=== PATIENT | female | born 1990 | race Caucasian/White ===

== ENCOUNTER 2023-08-17 13:00 | Outpatient (RCR) | payer OTHER, SELFPAY ==
--- NOTE | 2023-07-08 06:53 | HP.OTEVAL_ITS ---
Patient's Visit Information Visit Information Visit Information: NIGHAT BLANCO is a 33 year old F, referred to Occupational Therapy by Dr. Jah Wilson DO, with a diagnosis of R/L tenosynovitis, pain Right wrist. Date of Evaluation: 07/06/23 Occupational Therapist: KARELY Noyola/Zelda, CHT Subjective Subjective: This 33 year old female was seen for OT eval with dx of bilateral Tenosynovitis. pt states she notices pain in July 2022. Pt states things did improve but has had a fair up last few months. pt states pain will come from wrist into her pinky and also thumb will get random with numbness or tingling that has no pattern - pt states she notices increase more discomfort with her 10 hour work days pt states she varies with her work station in her home from desk to table to couch ADLs Comments: pt state she does workout with weights so she will use wrist wraps while she is lifting to get better hold- pt state when she gets her nails done she will get numbness in bilateral hands sleeping when wrist are curled will get numbness pt states she lift weight for strength training Pain right hand: Current Pain Intensity: 3 Pain Intensity Range: 0 and 3 left hand: Current Pain Intensity: 3 Pain Intensity Range: 0 and 3 ROM Elbow: right +10/140 left +10/140 Forearm: right/left WNL Wrist: right 65/65 left 65/65 ROM Comments: pt demo with slight Hyper ext at elbow all ROM is WNL Strength Supervisor Advice: right 70# left 65# Lateral Pinch: right 18# left 16# Tripod Pinch: right 12# left 12# Strength Comments: pt denies pain with testing Sensation Sensation Comments: pt states numbness comes and goes throughout Median and ulnar nerve distribution Special Tests Elbow Flexion Test - Cubital Tunnel: positive faster on right than left Quick DASH-Disab of Arm,Shoulder& Hand Quick DASH Score: 26.7850 Goals Goal:: 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 pt will demo understanding of work station ergo by end of 1st session to decrease stress on prolonged wrist flex/ext or elbow flexion positions to decrease stress on nerves. Goal:: Pt will demo understanding of using supportive bracing 80% of workday/ADLS to decrease stress on tendon origin to allow healing and decrease pain by end of 2nd session. Goal:: pt will demo understanding of keeping wrist in N alignment with lifting program to avoid aggressive tension on tendons & nerves by d/c. pt will demo understanding of avoiding elbow hyper ext- with lifting to decrease tension on ulnar nerve by d/c Rehabilitation General Assessment: pt demo with painful bilateral UE with increase use of typing as well as tingling/numbness throughout median and ulnar nerve distribution.pt demo with positive symptoms of nerve involvement with positional irritation. This limits pt IND with her daily work tasks as well as her IADLs. pt would benefit from skilled OT services 1-2x week for 4 weeks to ed. pt on nerve glides, protective irene. to avoid wrist and joint strain- as well as bracing to decrease tenosynovitis symptoms. Pt demo understanding and agrees to POC. Rehabilitation Potential: Good Anticipated Interventions Anticipated Interventions: A/AAROM/PROM, Triggerpoint Release, Modalities, Orthoses, Joint Protection/Energy Conservation, Ergonomic Education, Education re assistive Equipment, Education re Diagnosis and Home Program Other Interventions: work ergonomics lifting ergonomics Median and ulnar nerve glides Visit Plan Frequency: 1-2x /Week Duration: 4-6 Weeks TEXT: Thank you for the opportunity to evaluate your patient. For Medicare and Medicare HMO plans, please review the plan of care and approve it. It will need to be FAXED BACK to us at [phone] for Medicare purposes. Please let me know if there are questions or concerns regarding this plan of care. Physician Signature: Date:
--- NOTE | 2023-12-16 09:01 | HP.OT.NRP ---
Patient Information Patient Information: NIGHAT BLANCO was seen in my office for initial evaluation on 07/06/23. The following Plan of Care was established for this patient: POC Established Initial Frequency: 1-2x /Week Initial Duration: 4-6 Weeks Plan: Continue POC: 4-6 weeks (1-2x week) Anticipated Interventions Anticipated Interventions: A/AAROM/PROM, Triggerpoint Release, Modalities, Orthoses, Joint Protection/Energy Conservation, Ergonomic Education, Education re assistive Equipment, Education re Diagnosis and Home Program Other Interventions: work ergonomics lifting ergonomics Median and ulnar nerve glides Last Seen Last Seen: This patient was last seen in our office 08/17/23. Pertinent comments regarding their Occupational therapy will appear below: pt was seen for 4 OT sessions. No further apts scheduled at this time and due to time lapse in services pt is d/c. At this point I will be discontinuing this patient from occupational therapy. I would be happy to see this patient again in the future if found appropriate by the physician. Thank you! Arabella Tomlin, OTR/L, CHT
== END 2023-08-17 19:00 | disposition home or self-care (01) ==
LOC: OT 13:00
PROVIDERS: PCP Nurse Practitioner Family; Referring Provider Student in an Organized Health Care Education/Training Program; Visit Provider Student in an Organized Health Care Education/Training Program
DX: M65.841 Other synovitis and tenosynovitis, right hand (principal); M65.842 Other synovitis and tenosynovitis, left hand; M25.531 Pain in right wrist
CPT/HCPCS: 97035; 97110; 97140; 97166; 97530

== ENCOUNTER → 2024-01-12 | Outpatient (CLI) | payer BC, SELFPAY ==
[2024-01-12 12:52] LABS: Absolute Lymphocyte Count 2.63 X10^3/uL (0.83-4.51); Absolute Neutrophil Count 4.2 X10^3/uL (2.0-7.7); Basophil# 0.09 X10^3/uL; Basophil% 1.1 % (0-1); Eosinophil# 0.78 X10^3/uL; Eosinophils% 9.6 % (0-5); Hematocrit 40.8 % (37-47); Hemoglobin 13.5 g/dL (12.0-15.0); Lymphocyte # 2.63 X10^3/ul (0.83-4.51); Lymphocyte % 32.3 % (19-41); Mean Corp Hgb Conc 33.1 g/dL (32-36); Mean Corpuscular Hgb 28.1 pg (27.0-32.0); Mean Corpuscular Volume 84.8 fL (81-99); Monocyte# 0.45 X10^3/uL; Monocyte% 5.5 % (0-10); NRBC Flagged by Analyzer 0 % (0-5); Neutrophil # 4.16 X10^3/uL (2.7-7.7); Neutrophil % 51.3 % (47-70); Platelet Count 364 K/mm3 (150-450); RBC Distribution Width CV 12.4 % (11.6-14.6); RBC Distribution Width SD 37.3 fl (35.1-43.9); Red Blood Count 4.81 M/mm3 (4.2-5.4); White Blood Count 8.1 K/mm3 (4.4-11.0)
[2024-01-12 13:06] LABS: Vitamin B12 1120 pg/mL (211-911)
[2024-01-12 13:20] LABS: AST(SGOT) 14 U/L (15-37); Alanine Aminotransfer ALT/SGPT 18 U/L (13-56); Albumin, Serum 3.9 g/dL (3.2-5.0); Alkaline Phosphatase 54 U/L (45-117); Anion Gap 7 (5-15); BUN 11 mg/dL (7-18); BUN/Creat Ratio 11.1 RATIO (10-20); Calcium,Total 9.2 mg/dL (8.5-10.1); Chloride 106 mmol/L (98-107); Creatinine, Serum 0.99 mg/dL (0.55-1.02); EST Glomerular Filtration Rate 69 mL/min (>60); Est Glom Filt Rate - Afr Amer 83 mL/min (>60); Globulin 3.9 g/dL (2.2-4.2); Glucose 87 mg/dL (74-106); Magnesium 2.2 mg/dL (1.6-2.6); Potassium 3.6 mmol/L (3.5-5.1); Protein, Total 7.8 g/dL (6.4-8.2); Sodium Level 139 mmol/L (136-145); T4 Free Direct 1.25 ng/dL (0.76-1.46)
== END | disposition home or self-care (01) ==
PROVIDERS: PCP Nurse Practitioner Family; Visit Provider Nurse Practitioner Family
DX: R53.83 Other fatigue (principal)
CPT/HCPCS: 36415; 80053; 82306; 82607; 83735; 84439; 84443; 85025